=== PATIENT | female | born 1990 | race African-American/Black ===

== ENCOUNTER 2017-01-03 07:09 | Emergency (ER) | payer OTHER ==
[2017-01-03 07:16] VITALS: BP 148/79
[2017-01-03] MEDS ORDERED: CYCLOBENZAPRINE HCL 10 MG TABLET PO ONE (07:48)
[2017-01-03] MEDS ORDERED: KETOROLAC TROMETHAMINE 60 MG/2 ML SDV IM ONE (07:48)
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
== END 2017-01-03 08:30 | disposition home or self-care (01) ==
LOC: ER 07:09
DX: M54.2 Cervicalgia (principal); M79.1 Myalgia; M79.602 Pain in left arm; V89.2XXA Person injured in unspecified motor-vehicle accident, traffic, initial encounter
CPT/HCPCS: 99283; 96372; J1885